=== PATIENT | female | born 1985 | race Hispanic/Latino ===

== ENCOUNTER 2020-02-08 17:04 | Emergency (ER) | payer OTHER ==
[~2020-02-08 17:04] MED LIST: Iopamidol-370 76% 500 ML 1 ML ONE
[2020-02-08 18:27] LABS: #Basophils 0.1 thou/uL (0.0-0.2); #Eosinphils 0.2 thou/uL (0.0-0.7); #Lymphocytes 3.5 thou/uL (1.20-3.40); #Monocytes 0.9 thou/uL (0.11-0.59); #Neutrophils 8.9 thou/uL (1.40-6.50); %Basophils 0.7 % (0.0-1.0); %Eosinophils 1.3 % (0.0-10.0); %Lymphocytes 25.6 % (21.0-51.0); %Monocytes 6.8 % (0.0-10.0); %Neutrophils 65.6 % (42.0-75.0); Hemoglobin 12.8 g/dL (12.0-16.0); Mean Corpuscular HGB CONC 32.9 g/dL (32.0-36.0); Mean Corpuscular Hemoglobin 28.7 pg (27.0-31.0); Mean Corpuscular Volume 87.3 fL (78.0-98.0); Mean Platelet Volume 7.3 fL (7.4-10.4); Platelet Count 313 thou/uL (130-400); RBC Distribution Width 12.9 % (11.5-14.5); Red Blood Cell (RBC) Count 4.47 mill/uL (4.20-5.40); White Blood Cell (WBC) Count 13.6 thou/uL (4.8-10.8)
[2020-02-08 18:54] LABS: ALT (SGPT) 14 U/L (8-55); AST (SGOT) 16 U/L (5-34); Albumin 3.9 g/dL (3.5-5.0); Alkaline Phosphatase 82 U/L (40-110); Anion Gap 15 mmol/L (10-20); BUN (Urea Nitrogen) 9 mg/dL (7.0-18.7); Bilirubin, Total 0.5 mg/dL (0.2-1.2); Calc. Creatinine Clearance 0 mL/min (70-130); Calcium 9.2 mg/dL (7.8-10.44); Carbon Dioxide 23 mmol/L (22-29); Chloride 103 mmol/L (98-107); Estimated GFR-MDRD Greater than 90; Globulin 3.9 g/dL (2.4-3.5); Glucose 90 mg/dL (70-105); Lipase 17 U/L (8-78); Potassium 3.8 mmol/L (3.5-5.1); Protein, Total 7.8 g/dL (6.0-8.3); Sodium 137 mmol/L (136-145)
[2020-02-08] MEDS ORDERED: Ciprofloxacin 500 MG TAB ONE (18:58)
[2020-02-08] MEDS ORDERED: metroNIDAZOLE 500 MG/100 ML BAG ONE (19:01)
[2020-02-08 19:10] LABS: Bacteria/HPF None Seen HPF (None Seen); Bilirubin Negative (Negative); Blood, Urine Negative (Negative); Clarity Clear (Clear); Glucose, Urine (Dipstick) Normal (Negative); Ketone, Urine Trace mg/dL (Negative); Leukocyte 75 Leu/uL (Negative); Nitrite Negative (Negative); Protein, Urine (Dipstick) Negative (Neg-Trace); RBC/HPF 0-3 HPF (0-3); Specific Gravity, Urine 1.004 (1.002-1.036); Urobilinogen Normal mg/dL (Less than 2); WBC/HPF 0-3 HPF (0-3); pH, Urine 6.5 (5.0-9.0)
[2020-02-08 19:11] LABS: Pregnancy Test - Urine (BHCG) Negative (Negative); Specific Gravity 1.004 (1.002-1.036)
[2020-02-08 19:12] LABS: Pregu Control Background? CLEAR/WHITE (CLR/WHITE); Pregu Control Bar Appear? YES (CONTROL BAR)
--- NOTE | 2020-02-08 19:45 | CT ---
CT abdomen and pelvis with IV contrast HISTORY: Abdomen pain. FINDINGS: Lung bases are clear. The liver, spleen, kidneys, adrenal glands, and pancreas have a bryanna l CT appearance. Mild nonspecific distention of each ovarian vein. Nonspecific lymph nodes throughout the retroperitoneum. Focal inflammation the left lower quadrant involves and surrounds the upper sigmoid colon where a thi ckened wall diverticulum projects inferiorly. No free air or free fluid. There is stranding in the surrounding fat. A 1.1 cm subcortical cyst at the right side of the pubic symphysis may be related to degenerative irene nges. IMPRESSION : Prominent non-complicated sigmoid diverticulitis.
== END 2020-02-08 20:40 | disposition home or self-care (01) ==
LOC: ERS 17:04
DX: K57.30 Diverticulosis of large intestine without perforation or abscess without bleeding (principal)
CPT/HCPCS: 36415; 74177; 80053; 81003; 81015; 81025; 83690; 85025; 96365; Q9967